=== PATIENT | female | born 1995 | race Caucasian/White ===

== ENCOUNTER 2018-04-17 18:45 | Outpatient (REF) | payer MEDICAID, SELFPAY | END 2018-04-17 19:05 | LOC: LBN 18:45 | PROVIDERS: PCP Pediatrics; Visit Provider Nurse Practitioner Family | DX: R30.0 Dysuria (principal) | CPT/HCPCS: 87086 ==

== ENCOUNTER 2018-07-14 12:46 | Outpatient (REF) | payer MEDICAID, SELFPAY ==
[2018-07-16 07:27] LABS: Chlamydia Result Negative; GC Result Negative; Specimen Description CERVIX
== END 2018-07-14 13:06 ==
LOC: LBN 12:46
PROVIDERS: PCP Pediatrics; Visit Provider Nurse Practitioner Family
DX: Z11.3 Encounter for screening for infections with a predominantly sexual mode of transmission (principal)
CPT/HCPCS: 87491; 87591

== ENCOUNTER 2020-03-06 17:56 | Outpatient (REF) | payer BC, MEDICAID, SELFPAY ==
[2020-03-09 00:41] LABS: Chlamydia amplified RNA Negative (Negative); N gonorrhoeae amplified RNA Negative (Negative); Source URINE
== END 2020-03-06 18:16 ==
LOC: LBN 17:56
PROVIDERS: PCP Pediatrics; Visit Provider Nurse Practitioner Women's Health
DX: Z11.3 Encounter for screening for infections with a predominantly sexual mode of transmission (principal)
CPT/HCPCS: 87491; 87591

== ENCOUNTER 2020-03-21 02:36 | Outpatient (CLI) | payer BC, MEDICAID, SELFPAY ==
[2020-03-23 19:43] LABS: Patient Race White; SARS-CoV-2 RNA Undetected (Undetected); SARS-CoV-2 Specimen Source Nasal
== END 2020-03-21 02:56 ==
PROVIDERS: Pediatrics; PCP Pediatrics; Visit Provider Pediatrics
DX: Z11.59 Encounter for screening for other viral diseases (principal)
CPT/HCPCS: U0003

== ENCOUNTER 2020-07-03 11:01 | Outpatient (CLI) | payer BC, MEDICAID, SELFPAY ==
[2020-07-04 12:26] LABS: COVID-19 RT-PCR UVMMC Result Negative (Negative)
== END 2020-07-03 11:02 | disposition home or self-care (01) ==
LOC: LBO 11:02
PROVIDERS: PCP Pediatrics; Visit Provider Pediatrics
DX: Z20.822 Contact with and (suspected) exposure to COVID-19 (principal)
CPT/HCPCS: U0003

== ENCOUNTER 2021-03-20 15:51 | Outpatient (REF) | payer BC, MEDICAID, SELFPAY ==
--- NOTE | 2021-03-20 14:45 | PAPFT_PTH ---
PATIENT: Chrissie Ji LOC: [facility] U#:[id number] AGE/SX: 25/F ROOM: RE03/20/[address]: CHEYENNE Marks : 1995 BED: DIS: 03/20/2021 SPEC #: [id number] RECD: 03/20/21 18:05 STATUS: SHILPA REQ #: [id number] JOLLY: 03/20/21 14:[address]: Mary Flores DEPT: [facility] Cytology RECD BY: Clementina Henson ENTERED: 03/20/21 18:05 SP TYPE: PAPFT OTHR DR: Yadira Jackson MD Tissues: 1 - CX/ENDOCX FOR PAP SMEARS Procedures: PAP THIN PREP/[facility] Screening Comments: [id number]
[2021-03-23 14:51] LABS: Chlamydia Result Negative (Negative); GC Result Negative (Negative)
== END 2021-03-20 15:52 | disposition home or self-care (01) ==
LOC: LBN 15:51
PROVIDERS: PCP Student in an Organized Health Care Education/Training Program; Visit Provider Nurse Practitioner Family
DX: Z12.4 Encounter for screening for malignant neoplasm of cervix (principal); Z11.3 Encounter for screening for infections with a predominantly sexual mode of transmission
CPT/HCPCS: 87491; 87591; 88142

== ENCOUNTER 2022-07-06 15:52 | Emergency (ER) | payer BC, MEDICAID, SELFPAY ==
[2022-07-06 15:54] VITALS: BP 141/90; PULSE 74; RESP 16; TEMP 36.9; O2SAT 100
--- NOTE | 2022-07-06 16:00 | DI.RAD_ITS ---
Exam(s) XR WRIST LT COMPLETE EXAM: XR WRIST LT COMPLETE CLINICAL HISTORY: Fall, R/O Fracture. TECHNIQUE: 2D digital imaging was performed. Three views. COMPARISON: No exams were available for comparison FINDINGS: BONES: Comminuted intra-articular fracture of the distal radius with mild separation and mild displac ement. Nondisplaced ulnar styloid fracture. Carpal bones unremarkable. No bony destructive lesion is seen. JOINTS: The carpal bones are normally aligned. SOFT TISSUE: Normal. IMPRESSION: Distal radial and ulnar styloid fractures. DATA REPOSITORY: RADIATION DOSE DELIVERED:
--- NOTE | 2022-07-06 16:08 | ED.GENADUL_ITS ---
Discharge Plan Disposition Patient Disposition: Home Discharge Details Clinical Impression: Closed fracture of left distal radius and ulna Primary Care Provider: None,None ED Provider: Linda Argueta Home Meds and New Rx's Prescriptions: Continued hydroxyzine HCl 25 mg tablet 25 mg PO Q6H PRN Qty: 30 3RF Rx Instructions: Take 1-2 tabs every 6 hours as needed for headaches. sumatriptan succinate [Imitrex] 100 mg tablet 100 mg PO PRN Qty: 10 3RF Rx Instructions: Take 1 tablet as needed for headache. May repeat after 2 hours. No more than 2 tablets in a 24 hour period. ibuprofen [Advil] 200 MG tablet 400 mg PO PRN Discharge Instructions Instructions: Wrist Fracture in Adults (ED) Additional Instructions: Keep the splint on except for bathing. Rest ice compression elevation while sitting or lying down. Please take Tylenol or Ibuprofen with food every 4-6 hours as needed for pain and swelling. Please follow-up with orthopedics within the next week. You are placed on a follow-up list they should call you for an appointment. Referrals: Fredi Roberts MD [ [facility] STAFF PHYSICIAN] - 1 week Medical Decision Making 27-year-old female presents to the ER with chief complaint of left wrist pain status post snowboarding accident which occurred prior to arrival. Patient reports that she fell on on it and it began to swell almost immediately. Distal CMS is intact. She is able to flex and extend her elbow without difficulty. Cap refill less than 2 seconds. X-ray ibuprofen urine ordered. X-ray shows a distal radius and ulnar fracture. Patient placed in a universal wrist splint and a sling. Instructed on home care and follow-up care. Patient was placed on care management list to follow-up with Ortho verbalized understa nding. This text was generated using [employer] system, please disregard any oddities of phrase or misspellings. HPI General Mode of arrival: ambulatory . Date/Time Provider Initiated Documentation: 07/06/22 16:04 . Limitations to Documentation: no limitations . Information obtained by: patient, RN notes reviewed and old records reviewed . HPI Narrative: 27-year-old female presents to the ER with chief complaint of left wrist pain status post snowboarding accident which occurred prior to arrival. Patient reports that she fell on on it and it began to swell almost immediately. Distal CMS is intact. She is able to flex and extend her elbow without difficulty. Cap refill less than 2 seconds. She has a past medical history of migraine headache. She did not take any medications prior to arrival. Denies head injury loss of consciousness or any other associated symptoms. Related Data Home Medications Medication Instructions Recorded Confirmed ibuprofen 200 mg tablet (Advil) 400 mg PO PRN 12/17/17 07/06/22 hydroxyzine HCl 25 mg tablet 25 mg PO Q6H PRN #30 tab-caps 03/11/22 07/06/22 sumatriptan succinate 100 mg 100 mg PO PRN #10 tab-caps 03/11/22 07/06/22 tablet (Imitrex) Previous Rx's Medication Instructions Recorded hydroxyzine HCl 25 mg tablet 25 mg PO Q6H PRN #30 tab-caps 03/11/22 sumatriptan succinate 100 mg 100 mg PO PRN #10 tab-caps 03/11/22 tablet (Imitrex) Allergies Allergy/AdvReac Type Severity Reaction Status Date / Time No Known Allergies Allergy Verified 07/06/22 15:57 General Stated Complaint: Orthopedic RAMBO: 4 Review of Systems All systems reviewed & are unremarkable except as noted in HPI and below Musculoskeletal Musculoskeletal: Reports as per HPI, Reports arthralgias and Reports joint swelling PFSH All Active Problems (Updated 07/06/22 @ 17:06 by Linda Argueta NP) Closed fracture of left distal radius and ulna (Acute) Migraine headache with aura (Acute) Migraine headache without aura (Acute) Nexplanon removal (Acute) Migraine without aura and with status migrainosus, not intractable (Acute 12/17/17) Contraception (Acute 06/02/15) Migraine (Acute 09/27/14) Medical History (Updated 07/06/22 @ 17:06 by Linda Argueta NP) Obesity Surgical History Tooth extraction Family History Sister Migraine Social History Smoking/Tobacco Use Status: Never Smoking risk assessment performed?: Yes Alcohol Intake: current Alcohol Intake frequency: a few times a month Alcohol type: beer, wine and hard liquor Drug use: Never Substance use type: does not use Do you feel safe at home: Yes Do you feel safe in your relationship?: Yes History History 0 Para Hx # Term Pregnancies Multiple births Hx # Pregnancies Ectopic pregnancies AB induced Hx Number of Living Children AB spontaneous Exam Narrative Exam Narrative: General: Well Developed, Awake and Alert, conversant. Skin: Warm and Dry HEENT: Head: No palpable deformities, Normocephalic Eyes: Pupils PERRLA, EOM's intact. No periorbital eccymosis or step off Ears: Canal patent. Tympanic membranes are clear . No pereira's sign, no hemptympanum. Nose/Face: Atraumatic. Facial bones nontender to palpation and stable with manipulation. Mouth/Throat: No intraoral trauma. Teeth and mandible are intact. Neck: No midline tenderness, no step off, no deformity to palpation of C-spine. Trachea midline. Chest: No surface trauma. Nontender without crepitus or deformity. Lungs clear to ausculatation bilaterally. Heart: RRR, no rubs, murmurs or gallop. Abdomen: No abrasions, ecchymosis, or surface trauma. Nondistended. Nontender to palpation no guarding, rebound, or rigidity. Pelvis: Nontender to palpation and stable to compression. Femoral pulses strong and equal Extremities: no surface trauma. Sensation intact. Peripheral pulses intact and equal. Left wrist pain. Neuro: ANO x4, GCS 15, cranial nerves II through XII intact. Motor and sensory exam nonfocal. Reflexes are symmetric. Course Vital Signs Vital signs: Vital Signs Temperature 36.9 C 07/06/22 15:54 Pulse 74 07/06/22 15:54 Respiratory Rate 16 07/06/22 15:54 Blood Pressure 141/90 H 07/06/22 15:54 Pulse Oximetry 100 07/06/22 15:54 Temperature 36.9 C 07/06/22 15:54 Temperature Source Temporal Artery Scan 07/06/22 15:54 Pulse 74 07/06/22 15:54 Respiratory Rate 16 07/06/22 15:54 Respiratory Effort Normal, Non-Labored 07/06/22 15:58 Blood Pressure 141/90 H 07/06/22 15:54 Blood Pressure Position Sitting 07/06/22 15:54 Pulse Oximetry 100 07/06/22 15:54 Oxygen Delivery Method Room Air 07/06/22 15:54 Oxygen Flow Rate 0 07/06/22 15:54 Pain Level 5 07/06/22 15:59 PAWSS Have you Been Recently Intoxicated or Drunk Within the Last 30 days?: Yes Have you Ever Experienced Previous Episodes of Alcohol Withdrawal?: No Have you ever Experienced Withdrawal Seizures?: No Have you ever Experienced Delirium Tremens(DT)s?: No Have you ever undergone Alcohol Rehabilitation Treatment (i.e, inpt ot outpatient treatment programs)?: No Have you ever Experienced Blackouts?: No Have you ever Combined Alcohol with other Downers within the last 90 days?: No Have you ever Combined Alcohol with any other Substance of Abuse during the last 90 days?: No Positive Blood Alcohol level on Presentation? [PCS.BAL]: No Evidence of Increased Autonomic Activity (i.e. HR>120, tremor, sweating, agitation, nausea)?: No Result: 1
[2022-07-06] MEDS: Acetaminophen 325 MG TAB 650 MG PO (16:42)
--- NOTE | 2022-07-06 16:45 | DI.VRAD_ITS ---
PROCEDURE INFORMATION: Exam: XR Left Wrist Exam date and time: 07/06/2022 4:24 PM Age: 27 years old Clinical indication: Other: Fall, R/O fracture TECHNIQUE: Imaging protocol: Radiologic exam of the left wrist. Views: 3 or more views. COMPARISON: No relevant prior studies available. FINDINGS: Bones/joints: A comminuted displaced fracture of the distal radius.. Nondisplaced fracture of the ulnar styloid. Soft tissues: Soft tissue swelling of the wrist IMPRESSION: 1. A comminuted displaced fracture of the distal radius.. 2. Nondisplaced fracture of the ulnar styloid. Dictated and Authenticated by: Tino Parsons MD. Ordering:JAIMIE Mckeon MD
== END 2022-07-06 17:19 | disposition home or self-care (01) ==
PROVIDERS: Emergency Provider Registered Nurse Emergency
DX: S52.502A Unspecified fracture of the lower end of left radius, initial encounter for closed fracture (principal); S52.602A Unspecified fracture of lower end of left ulna, initial encounter for closed fracture; V00.311A Fall from snowboard, initial encounter; Y93.23 Activity, snow (alpine) (downhill) skiing, snowboarding, sledding, tobogganing and snow tubing
CPT/HCPCS: 29125; 99283; 73110

== ENCOUNTER 2022-07-15 12:39 | Outpatient (CLI) | payer BC, MEDICAID, SELFPAY ==
--- NOTE | 2022-07-15 15:30 | DI.RAD_ITS ---
Exam(s) XR WRIST LT COMPLETE EXAM: XR WRIST LT COMPLETE CLINICAL HISTORY: L wrist fx. TECHNIQUE: 2D digital imaging was performed. COMPARISON: No exams were available for comparison FINDINGS: 3 views There are fractures distal radius and ulna. Distal radius fracture involves the radiocarpal joint bu t with minimal displacement and no dorsal angulation. There is fracture of the base of the ulnar sty loid without significant displacement. No carpal dislocation. Scaphoid and scapholunate distance ar e normal. Bone density normal. No osseous lesions. No radiopaque foreign body. IMPRESSION: Fractures of distal radius and ulnar styloid. No significant ulnar variance. DATA REPOSITORY: RADIATION DOSE DELIVERED:
== END 2022-07-15 12:40 | disposition home or self-care (01) ==
LOC: DIORS 12-24 12:39
PROVIDERS: Visit Provider Physician Assistant
DX: S52.611A Displaced fracture of right ulna styloid process, initial encounter for closed fracture (principal); S52.511A Displaced fracture of right radial styloid process, initial encounter for closed fracture; X58.XXXA Exposure to other specified factors, initial encounter
CPT/HCPCS: 73110

== ENCOUNTER 2022-07-22 13:41 | Outpatient (CLI) | payer BC, MEDICAID, SELFPAY ==
--- NOTE | 2022-07-22 13:00 | DI.RAD_ITS ---
Exam(s) XR WRIST LT COMPLETE EXAM: XR WRIST LT COMPLETE INDICATION: f/u L WRIST FRACTURE. COMPARISON: No exams were available for comparison TECHNIQUE: 2D digital imaging was performed. Two views. FINDINGS: There has been no change in the alignment of the distal radial and ulnar styloid fractures. No new a bnormalities are seen. DATA REPOSITORY: RADIATION DOSE DELIVERED:
== END 2022-07-22 13:42 | disposition home or self-care (01) ==
LOC: DIORS 13:41
PROVIDERS: Visit Provider Student in an Organized Health Care Education/Training Program
DX: S52.592D Other fractures of lower end of left radius, subsequent encounter for closed fracture with routine healing; S52.615D Nondisplaced fracture of left ulna styloid process, subsequent encounter for closed fracture with routine healing; X58.XXXD Exposure to other specified factors, subsequent encounter
CPT/HCPCS: 73110

== ENCOUNTER 2022-08-08 13:57 | Outpatient (CLI) | payer BC, MEDICAID, SELFPAY ==
--- NOTE | 2022-08-08 13:45 | DI.RAD_ITS ---
Exam(s) XR WRIST LT COMPLETE EXAM: XR WRIST LT COMPLETE INDICATION: f/u fx. COMPARISON: CR XR WRIST LT COMPLETE from 07/22/2022 TECHNIQUE: 2D digital imaging was performed. Two views. FINDINGS: There has been no change in the alignment of the distal radial or ulnar styloid fractures. No new fi ndings. DATA REPOSITORY: RADIATION DOSE DELIVERED:
== END 2022-08-08 13:58 | disposition home or self-care (01) ==
LOC: DIORS 13:58
PROVIDERS: Visit Provider Physician Assistant
DX: S52.592D Other fractures of lower end of left radius, subsequent encounter for closed fracture with routine healing (principal); S52.615D Nondisplaced fracture of left ulna styloid process, subsequent encounter for closed fracture with routine healing; X58.XXXD Exposure to other specified factors, subsequent encounter
CPT/HCPCS: 73110

== ENCOUNTER 2022-09-05 14:44 | Outpatient (CLI) | payer BC, MEDICAID, SELFPAY ==
--- NOTE | 2022-09-05 14:15 | DI.RAD_ITS ---
Exam(s) XR WRIST LT COMPLETE EXAM: XR WRIST LT COMPLETE CLINICAL HISTORY: fracture follow up. TECHNIQUE: 2D digital imaging was performed. Three views. COMPARISON: CR XR WRIST LT COMPLETE from 08/08/2022 FINDINGS: BONES: There is increased callus formation noted around the distal radial fracture site consistent wi th some increased healing. The ulnar styloid fractures unchanged in alignment. No new abnormalities are seen. No bony destructive lesion is seen. JOINTS: The carpal bones are normally aligned. SOFT TISSUE: Normal. IMPRESSION: Healing distal radial fracture. DATA REPOSITORY: RADIATION DOSE DELIVERED:
== END 2022-09-05 14:45 | disposition home or self-care (01) ==
LOC: DIORS 14:45
PROVIDERS: Visit Provider Physician Assistant
DX: S52.502D Unspecified fracture of the lower end of left radius, subsequent encounter for closed fracture with routine healing (principal); S52.602D Unspecified fracture of lower end of left ulna, subsequent encounter for closed fracture with routine healing
CPT/HCPCS: 73110

== ENCOUNTER 2022-11-09 23:16 | Emergency (ER) | payer BC, MEDICAID, SELFPAY ==
[2022-11-09 23:24] VITALS: BP 129/70; PULSE 62; RESP 18; TEMP 36.3; O2SAT 97
--- NOTE | 2022-11-10 00:20 | ED.GENADUL_ITS ---
Discharge Plan Disposition Patient Disposition: Home Condition: Good Discharge Details Clinical Impression: CHI (closed head injury), Abrasions of multiple sites Primary Care Provider: Mary,Local ED Provider: Lita Medellin Home Meds and New Rx's Prescriptions: Continued hydroxyzine HCl 25 mg tablet 25 mg PO Q6H PRN Qty: 30 3RF Rx Instructions: Take 1-2 tabs every 6 hours as needed for headaches. sumatriptan succinate [Imitrex] 100 mg tablet 100 mg PO PRN Qty: 10 3RF Rx Instructions: Take 1 tablet as needed for headache. May repeat after 2 hours. No more than 2 tablets in a 24 hour period. ibuprofen [Advil] 200 MG tablet 400 mg PO PRN Discharge Instructions Instructions: Head Injury (ED), Abrasion (ED) Additional Instructions: Keep your abrasions clean dry and intact. Triple antibiotic or Neosporin until they are healed. Return for symptoms on head injury sheet i.e. protracted vomiting, headache not controlled with Tylenol, any other concerns. Stand Alone Forms: Work Release Medical Decision Making [place] head injury rules states that the patient does not need a head CT. This was discussed with her extensively. She did take some Zofran and Tylenol as well as a tetanus shot. She was stable on discharge. I did ask her to take tomorrow and perhaps a day after off from work. She will return for counts vomiting, headache uncontrolled with analgesia, confusion, any other concerns. Medical Records Medical records reviewed: Yes I reviewed the patient's medical records. HPI General Date/Time Provider Initiated Documentation: 11/10/22 00:00 . HPI Narrative: This 27-year-old female patient presents with a chief complaint of fall skateboarding. Patient was skateboarding without a helmet or other protection earlier this evening in the dark. She lost her balance and fell. She was not traveling at a high rate of speed. She did hit her head but denies LOC. There is no neck pain. She has mild nausea, mild headache. She has had no dizziness, vomiting, or altered mental status. Her last tetanus shot was at least 9 years ago. 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 She has a lot of road rash which has been cleansed in the ED. The injuries are mild to moderate the pain in her head is mild aching. Does not radiate. She has not tried any analgesics or ice. Related Data Home Medications Medication Instructions Recorded Confirmed ibuprofen 200 mg tablet (Advil) 400 mg PO PRN 12/17/17 11/10/22 hydroxyzine HCl 25 mg tablet 25 mg PO Q6H PRN #30 tab-caps 03/11/22 11/10/22 sumatriptan succinate 100 mg 100 mg PO PRN #10 tab-caps 03/11/22 11/10/22 tablet (Imitrex) Previous Rx's Medication Instructions Recorded hydroxyzine HCl 25 mg tablet 25 mg PO Q6H PRN #30 tab-caps 03/11/22 sumatriptan succinate 100 mg 100 mg PO PRN #10 tab-caps 03/11/22 tablet (Imitrex) Allergies Allergy/AdvReac Type Severity Reaction Status Date / Time No Known Allergies Allergy Verified 11/10/22 00:14 General Stated Complaint: Fall/Non TraumaCriteria RAMBO: 3 Review of Systems Constitutional Constitutional: Denies chills, Denies fever(s), Reports headache(s) and Denies weakness Eyes Eyes: Denies diplopia and Reports other (no redness) ENT Ears, Nose, Mouth, and Throat: Denies otalgia, Reports headache(s), Denies nasal congestion, Denies nasal discharge, Denies neck pain and Denies sore throat Cardiovascular Cardiovascular: Denies chest pain, Denies palpitations and Denies dyspnea Respiratory Respiratory: Denies cough and Denies dyspnea Gastrointestinal Gastrointestinal: Denies abdominal pain, Denies diarrhea, Denies nausea and Denies vomiting Genitourinary Genitourinary: Denies dysuria Musculoskeletal Musculoskeletal: Denies myalgias, Denies muscle weakness, Denies neck pain, Denies numbness and Reports other (edema) Integumentary/Breasts Skin/Breast: Denies change in pigmentation, Denies rash and Reports other (Has abrasions) Neurologic Neurologic: Reports headache(s), Denies numbness, Denies weakness and Reports other (no LOC) Endocrine Endocrine: Denies palpitations PFSH All Active Problems CHI (closed head injury) (Acute) Abrasions of multiple sites (Acute) Closed fracture of left distal radius and ulna (Acute 07/06/22) Migraine headache with aura (Acute) Migraine headache without aura (Acute) Nexplanon removal (Acute) Migraine without aura and with status migrainosus, not intractable (Acute 12/17/17) Contraception (Acute 06/02/15) Migraine (Acute 09/27/14) Medical History Obesity Surgical History Tooth extraction Family History Sister Migraine Social History Smoking/Tobacco Use Status: Never Smoking risk assessment performed?: Yes Alcohol Intake: current Alcohol Intake frequency: a few times a month Alcohol type: beer, wine and hard liquor Drug use: Occasionally Substance use type: marijuana Do you feel safe at home: Yes Do you feel safe in your relationship?: Yes History History 0 Para Hx # Term Pregnancies Multiple births Hx # Pregnancies Ectopic pregnancies AB induced Hx Number of Living Children AB spontaneous Exam Const General: no acute distress, well developed, well groomed and not in acute distress Nutritional Appearance: well nourished Orientation: alert and oriented x3 HENMT Head: normocephalic Ears: external ears normal and TM's normal bilaterally General nose exam: other (Minor abrasion, no septal hematoma) Face and sinus: other (Right-sided forehead and cheek abrasions, no bony tenderness to palpation) Mouth: oropharynx normal and moist mucous membranes Throat: posterior oropharynx normal Eyes Conjunctivae: conjunctivae normal Pupils: PERRL EOM: EOM intact bilaterally Neck Neck: full ROM, supple and other (spine NTP) Chest Chest: normal inspection of the chest and normal palpation of entire chest wall Resp Effort & Inspection: normal respiratory effort Auscultation: clear to auscultation bilaterally Cardio Rate: regular rate Rhythm: regular rhythm Heart Sounds: no murmurs and no rubs GI Inspection: normal to inspection Palpation: soft, nontender and other (non distended) Auscultation: normal bowel sounds Back/Spine/Pelvis Back: no CVA tenderness Cervical Spine: cervical ROM normal and No cervical spinal tenderness Thoracic/Lumbar Spine: thoracic and lumbar spine normal to inspection, No thoracic spinal tenderness and No lumbar spinal tenderness Pelvis: no pain with anterior-posterior compression and no pain with lateral compression Skin General skin exam: no rashes or lesions noted and other (PWD< abras's ANAT, right elbow/forearm/hand, left knee/palm, all NTP, FROM) Neuro General: patient alert, patient awake and patient oriented x3 Speech: speech normal Gait: normal gait Motor: muscle tone normal throughout, strength 5/5 throughout and other ([place]) Sensory Exam: no sensory deficits noted Extrem General: full ROM, pedal edema present and other (As noted previously) Psych Mental Status: mental status grossly normal Speech and Movement: speech and movement normal Affect: normal affect Course Vital Signs Vital signs: Vital Signs Temperature 36.3 C L 11/09/22 23:24 Pulse 62 11/09/22 23:24 Respiratory Rate 18 11/09/22 23:24 Blood Pressure 129/70 11/09/22 23:24 Pulse Oximetry 97 11/09/22 23:24 Temperature 36.3 C L 11/09/22 23:24 Temperature Source Tympanic 11/09/22 23:24 Pulse 62 11/09/22 23:24 Respiratory Rate 18 11/09/22 23:24 Respiratory Effort Normal 11/09/22 23:32 Blood Pressure 129/70 11/09/22 23:24 Blood Pressure Position Sitting 11/09/22 23:24 Pulse Oximetry 97 11/09/22 23:24 Pain Level 2 11/09/22 23:32 PAWSS Have you Been Recently Intoxicated or Drunk Within the Last 30 days?: No Have you Ever Experienced Previous Episodes of Alcohol Withdrawal?: No Have you ever Experienced Withdrawal Seizures?: No Have you ever Experienced Delirium Tremens(DT)s?: No Have you ever undergone Alcohol Rehabilitation Treatment (i.e, inpt ot outpatient treatment programs)?: No Have you ever Experienced Blackouts?: No Have you ever Combined Alcohol with other Downers within the last 90 days?: No Have you ever Combined Alcohol with any other Substance of Abuse during the last 90 days?: No Positive Blood Alcohol level on Presentation? [PCS.BAL]: No Evidence of Increased Autonomic Activity (i.e. HR>120, tremor, sweating, agitation, nausea)?: No Result: 0
[2022-11-10] MEDS: Acetaminophen 325 MG TAB 650 MG PO (00:34)
[2022-11-10] MEDS: Ondansetron O.D.T. 4 MG TABEF 8 MG PO (00:35)
[2022-11-10 00:57] VITALS: BP 112/59; PULSE 59; RESP 20; O2SAT 100
== END 2022-11-10 00:57 | disposition home or self-care (01) ==
PROVIDERS: Emergency Provider Emergency Medicine
DX: S00.81XA Abrasion of other part of head, initial encounter (principal); S50.311A Abrasion of right elbow, initial encounter; S60.811A Abrasion of right wrist, initial encounter; S60.812A Abrasion of left wrist, initial encounter; V00.131A Fall from skateboard, initial encounter
CPT/HCPCS: 96372; 99284

== ENCOUNTER 2022-11-14 11:44 | Outpatient (CLI) | payer BC, MEDICAID, SELFPAY ==
--- NOTE | 2022-11-14 11:30 | DI.RAD_ITS ---
Exam(s) XR ABDOMEN FLAT UPRIGHT EXAM: 2D digital imaging was performed. CLINICAL HISTORY: constipation, K59.00. COMPARISON: CR ABDOMEN FLAT PLATE from 06/14/2008 TECHNIQUE: Supine and upright views of the abdomen was performed. Two images were obtained. FINDINGS: LUNG BASES: Clear. BOWEL GAS PATTERN: Nondistended. There is a moderate amount of stool in the colon. It predominantly lies in the right colon. FREE AIR: None. CALCIFICATIONS: No radiopaque calcifications. OSSEOUS STRUCTURES: Normal for age. OTHER FINDINGS: None. IMPRESSION: Moderate amount of retained stool suggesting constipation. DATA REPOSITORY: RADIATION DOSE DELIVERED:
== END 2022-11-14 12:04 ==
LOC: DI 11:48
PROVIDERS: Visit Provider Physician Assistant
DX: K59.00 Constipation, unspecified (principal)
CPT/HCPCS: 74019

== ENCOUNTER 2023-02-05 10:10 | Outpatient (REF) | payer BC, MEDICAID, SELFPAY ==
[2023-02-06 15:02] LABS: Chlamydia Result Negative (Negative); GC Result Negative (Negative)
== END 2023-02-05 10:11 | disposition home or self-care (01) ==
LOC: LBN 10:10
PROVIDERS: Visit Provider Nurse Practitioner Women's Health
DX: R30.0 Dysuria (principal); N76.0 Acute vaginitis; Z11.3 Encounter for screening for infections with a predominantly sexual mode of transmission
CPT/HCPCS: 87077; 87491; 87591; 87086; 87186; 87480; 87510; 87660

== ENCOUNTER 2023-06-17 16:30 | Outpatient (REF) | payer BC, MEDICAID, SELFPAY ==
[2023-06-19 12:14] LABS: Chlamydia Result Negative (Negative); GC Result Negative (Negative)
== END 2023-06-17 16:31 | disposition home or self-care (01) ==
LOC: LBN 16:30
PROVIDERS: Visit Provider Advanced Practice Midwife
DX: N89.8 Other specified noninflammatory disorders of vagina (principal); R30.0 Dysuria; Z11.3 Encounter for screening for infections with a predominantly sexual mode of transmission
CPT/HCPCS: 87491; 87591; 87086; 87480; 87510; 87660

== ENCOUNTER 2023-08-27 09:21 | Outpatient (REF) | payer BC, SELFPAY ==
[2023-08-28 14:15] LABS: Chlamydia Result Negative (Negative); GC Result Negative (Negative)
== END 2023-08-27 09:22 | disposition home or self-care (01) ==
LOC: LBN 09:21
PROVIDERS: PCP Nurse Practitioner Women's Health; Visit Provider Nurse Practitioner Women's Health
DX: Z11.3 Encounter for screening for infections with a predominantly sexual mode of transmission (principal)
CPT/HCPCS: 87491; 87591

== ENCOUNTER 2023-08-27 09:30 | Outpatient (CLI) | payer BC, SELFPAY ==
[2023-08-27 19:06] LABS: HIV-1/2 Ag & Ab Screen Negative (Negative)
[2023-08-27 19:09] LABS: Hepatitis C Ab w Rflx HCV PCR Negative (Negative)
[2023-08-28 23:26] LABS: Syphilis IgG w/Reflex Nonreactive (Nonreactive)
== END 2023-08-27 09:31 | disposition home or self-care (01) ==
LOC: LBO 09:31
PROVIDERS: PCP Nurse Practitioner Women's Health; Visit Provider Nurse Practitioner Women's Health
DX: Z11.3 Encounter for screening for infections with a predominantly sexual mode of transmission (principal)
CPT/HCPCS: 36415; 86803; 87389; 86780

== ENCOUNTER 2023-11-10 15:02 | Outpatient (REF) | payer BC, SELFPAY | END 2023-11-10 15:03 | disposition home or self-care (01) | LOC: LBN 15:02 | PROVIDERS: Visit Provider Obstetrics & Gynecology Gynecology | DX: N89.8 Other specified noninflammatory disorders of vagina (principal) | CPT/HCPCS: 87480; 87510; 87660 ==

== ENCOUNTER 2024-07-01 09:42 | Emergency (ER) | payer BC, SELFPAY ==
[2024-07-01 10:13] VITALS: BP 176/108; PULSE 68; RESP 18; TEMP 36.4; O2SAT 98
[2024-07-01 10:29] VITALS: BP 176/108; PULSE 68; RESP 18; TEMP 36.4; O2SAT 98
[2024-07-01] MEDS: Ketorolac 15 MG/ML VIAL 7.5 MG IM (11:05)
[2024-07-01] MEDS: Prochlorperazine 10 MG/2 ML VIAL IM (11:05)
[2024-07-01] MEDS: Acetaminophen 500 MG TAB 1000 MG PO (11:06)
[2024-07-01 12:01] VITALS: BP 124/78; PULSE 54; RESP 16; O2SAT 100
--- NOTE | 2024-07-01 15:59 | NUR.NOTE ---
Patient called stating that she could not find her wallet. She was in Rm 10 and the waiting room. [employer] checked waiting room; no wallet. ED checked room 10 no wallet. Patient notified. Nursing Note:
--- NOTE | 2024-07-03 08:21 | ED.GENADUL_ITS ---
Discharge Plan Disposition Patient Disposition: Home Condition: Stable Discharge Details Clinical Impression: Migraine headache without aura Primary Care Provider: AMOS RICARDO ED Provider: Clementina Arreguin Home Meds and New Rx's Prescriptions: New prochlorperazine maleate [Compazine] 10 mg tablet 10 mg PO Q6H PRNQty: 10 0RF Continued rizatriptan 10 mg tablet See Rx Instructions PO .COMPLEX Qty: 10 3RF Rx Instructions: take 1 tab at onset of headache; if no relief may repeat 1 tab after at least 2 hrs; max = 2 tabs/24 hr PO ibuprofen [Advil] 200 MG tablet 400 mg PO PRN hydroxyzine HCl 25 mg tablet See Rx Instructions .ROUTE .COMPLEX Qty: 30 3RF Dose Instruction: TAKE 1-2 TABLETS BY MOUTH EVERY 6 HOURS NEEDED FOR HEADACHES Rx Instructions: TAKE 1-2 TABLETS BY MOUTH EVERY 6 HOURS NEEDED FOR HEADACHES Discharge Instructions Instructions: Headache, Adult ED Additional Instructions: Take Motrin 400 to 600 mg Tylenol 650 g every 6 hours for headache control You may take the Compazine as prescribed as needed for headache Follow the instructions for your rizatriptan You may talk to your doctor about a prophylactic medication if your headaches continue to worsen Should you have return of headache or with any new or worsening complaints, please be reassessed in the emergency department Stand Alone Forms: Work Release Referrals: AMOS RICARDO, [facility]IST [Primary Care Provider] - 2 days Discharge Data Discharge Date/Time-TO BE ENTERED AT DEPARTURE: 07/01/24 12:02 HPI General Date/Time Provider Initiated Documentation: 07/01/24 10:41 . HPI Narrative: The patient is a 29-year-old female who presents with a headache that remains uncontrolled despite appropriate medical management at home. She describes the headache as slightly worse than her typical headache. She has experienced some nausea and vomiting. She has not been able to take Motrin or Tylenol at home. She reports no recent illnesses or injuries and does not believe she has been exposed to carbon monoxide. She also reports no changes in vision, strength, sensation, or speech. Additionally, she has not noticed any rashes or lesions. Declines chance of Related Data Home Medications ?Medication ?Instructions ?Recorded ?Confirmed ibuprofen 200 mg tablet (Advil) 400 mg PO PRN 12/17/17 07/01/24 rizatriptan 10 mg tablet See Rx Instructions PO .COMPLEX 03/18/24 07/01/24 #10 tabs hydroxyzine HCl 25 mg tablet See Rx Instructions .Route 07/01/24 07/01/24 .COMPLEX #30 tabs prochlorperazine maleate 10 mg 10 mg PO Q6H PRN #10 tabs 07/01/24 tablet (Compazine) Previous Rx's ?Medication ?Instructions ?Recorded rizatriptan 10 mg tablet See Rx Instructions PO .COMPLEX 03/18/24 #10 tabs hydroxyzine HCl 25 mg tablet See Rx Instructions .Route 07/01/24 .COMPLEX #30 tabs prochlorperazine maleate 10 mg 10 mg PO Q6H PRN #10 tabs 07/01/24 tablet (Compazine) Allergies Allergy/AdvReac Type Severity Reaction Status Date / Time No Known Allergies Allergy Verified 07/01/24 10:14 General Stated Complaint: Headache RAMBO: 3 Exam Narrative Exam Narrative: General Appearance: The patient is alert and oriented, but appears uncomfortable and is tearful in the room. Vital signs: Within normal limits. HEENT: Within normal limits. Respiratory: Within normal limits. Skin: Warm and dry, no rash. Neurological: The patient has a nonfocal neurological exam. Course Vital Signs Vital signs: Vital Signs Temperature 36.4 C 07/01/24 10:13 Pulse 68 07/01/24 10:13 Respiratory Rate 18 07/01/24 10:13 Blood Pressure 176/108 H 07/01/24 10:13 Pulse Oximetry 98 07/01/24 10:13 Temperature 36.4 C 07/01/24 10:29 Temperature Source Oral 07/01/24 10:29 Pulse 54 L 07/01/24 12:01 Respiratory Rate 16 07/01/24 12:01 Blood Pressure 124/78 07/01/24 12:01 Blood Pressure Position Sitting 07/01/24 10:29 Pulse Oximetry 100 07/01/24 12:01 Oxygen Delivery Method Room Air 07/01/24 10:29 Oxygen Flow Rate 0 07/01/24 10:29 Pain Level 8 07/01/24 10:29 Medical Decision Making Initial Assessment: 29-year-old female presents with headache slightly worse than her typical headache, accompanied by nausea and vomiting. Denies recent illnesses, injuries, risk of carbon monoxide exposure, vision change, strength, sensation, or speech change, and . Neurological exam stable, no meningismus. ED Course: - Administered intramuscular Compazine and Toradol, marked improvement in symptoms. - Patient tearful and uncomfortable in the room. - Encouraged to follow up with primary care physician. - Prescription for Compazine for home use as needed. - Advised to take Motrin and Tylenol as needed for pain. - Given a low threshold to return due to any complaints. -As patient had appropriate relief with typical migraine medications imaging deferred at this time Final Assessment: Patient presented with a headache and associated nausea and vomiting. After administration of Compazine and Toradol, symptoms markedly improved. Neurological exam remained stable. Discharge with follow-up instructions and prescription for Compazine. Clinical Impression: - Cephalgia - Nausea and vomiting Disposition: - Discharge - Follow-Up: Follow up with primary care physician. MDM Components Evaluation: - Number of Differential Diagnoses or Management Options: Cephalgia, Nausea and vomiting - Amount and Complexity of Data Reviewed: MRI in the outpatient setting - Risk of Complication and Morbidity or Mortality: Low threshold to return due to any complaints. Quality:SDOH Health Related Social Needs: No Data to Display PFSH All Active Problems (Updated 07/01/24 @ 11:35 by FRANCIA Acuna) Vaginal pruritus (Acute) Encounter for screening examination for sexually transmitted disease (Acute) Vaginal discharge (Acute) Dysuria (Acute) Abnormal uterine bleeding (AUB) (Acute) Closed fracture of left distal radius and ulna (Acute 07/06/22) Migraine headache with aura (Acute) Migraine headache without aura (Acute) Migraine without aura and with status migrainosus, not intractable (Acute 12/17/17) Contraception (Acute 06/02/15) Migraine (Acute 09/27/14) Medical History (Updated 07/01/24 @ 11:35 by FRANCIA Acuna) Obesity Surgical History Tooth extraction Family History Sister Migraine Social History Smoking/Tobacco Use Status: Never Smoking risk assessment performed?: Yes Alcohol Intake: former Drug use: Current Sobriety Do you feel safe at home: Yes Do you feel safe in your relationship?: Yes Female Reproductive History Menstrual control method: condoms History History 0 Para Hx # Term Pregnancies Multiple births Hx # Pregnancies Ectopic pregnancies AB induced Hx Number of Living Children AB spontaneous
== END 2024-07-01 12:02 | disposition home or self-care (01) ==
PROVIDERS: Emergency Provider Physician Assistant; PCP Nurse Practitioner Family
DX: G43.109 Migraine with aura, not intractable, without status migrainosus (principal)
CPT/HCPCS: 96372; 96374; 99284; 99283; J0780; J1885

== ENCOUNTER 2024-08-25 14:39 | Outpatient (REF) | payer BC, SELFPAY ==
--- NOTE | 2024-08-25 14:30 | PAPFT_PTH ---
PATIENT: Chrissie Ji LOC: [facility] U#:[id number] AGE/SX: 29/F ROOM: RE08/25/[address]: Sumaya Drummond MD : 1995 BED: DIS: 08/25/2024 SPEC #: [id number] RECD: 08/25/24 17:34 STATUS: SHILPA REQ #: [id number] JOLLY: 08/25/24 14:[address]: Sumaya Drummond DEPT: [facility] Cytology RECD BY: Clementina Henson ENTERED: 08/25/24 17:34 SP TYPE: PAPFT OTHR DR: AMOS RICARDO NP Tissues: 1 - CX/ENDOCX FOR PAP SMEARS Procedures: PAP THIN PREP/[facility] Screening Comments: [id number]
== END 2024-08-25 14:40 | disposition home or self-care (01) ==
LOC: LBN 14:39
PROVIDERS: PCP Nurse Practitioner Family; Visit Provider Obstetrics & Gynecology
DX: Z12.4 Encounter for screening for malignant neoplasm of cervix (principal)
CPT/HCPCS: 88142

== ENCOUNTER 2024-11-15 17:30 | Outpatient (CLI) | payer BC, SELFPAY ==
--- NOTE | 2024-11-15 17:50 | DI.RAD_ITS ---
Exam(s) XR CHEST 2V PA LATERAL EXAM: XR CHEST 2V PA LATERAL CLINICAL HISTORY: Subacute cough, R05.2 TECHNIQUE: 2D digital imaging was performed of the chest. Two images were obtained. PA and lateral views were obtained. COMPARISON: No exams were available for comparison FINDINGS: MEDIASTINUM: Normal. HEART: Normal. PULMONARY VASCULATURE: Normal. LUNGS: Clear. PLEURAL SPACE: No pleural effusion or pneumothorax. BONE:Within normal limits for the patient's age. OTHER FINDINGS:Normal. IMPRESSION: No acute pulmonary findings. DATA REPOSITORY: RADIATION DOSE DELIVERED:
--- NOTE | 2024-11-15 18:32 | DI.VRAD_ITS ---
PROCEDURE INFORMATION: Exam: XR Chest Exam date and time: 11/15/2024 5:49 PM Age: 29 years old Clinical indication: Cough and other: Subacute cough TECHNIQUE: Imaging protocol: Radiologic exam of the chest. Views: 2 views. COMPARISON: CR XR ABDOMEN FLAT UPRIGHT 11/14/2022 11:44 AM FINDINGS: Lungs: Unremarkable. No consolidation. Pleural spaces: Unremarkable. No pleural effusion. No pneumothorax. Heart/Mediastinum: Unremarkable. No cardiomegaly. Bones/joints: Unremarkable. IMPRESSION: No acute findings. Dictated and Authenticated by: Hawk Johnson MD. Orderin CINDY AGUILAR MD
== END 2024-11-15 17:50 ==
LOC: DI 17:34
PROVIDERS: PCP Nurse Practitioner Family; Visit Provider Nurse Practitioner Family
DX: R05.2 Subacute cough (principal)
CPT/HCPCS: 71046

== ENCOUNTER 2025-03-16 16:26 | Outpatient (REF) | payer BC, SELFPAY ==
[2025-03-18 11:09] LABS: Chlamydia Result Negative (Negative); GC Result Negative (Negative)
== END 2025-03-16 16:27 | disposition home or self-care (01) ==
LOC: LBN 16:26
PROVIDERS: PCP Nurse Practitioner Family; Visit Provider Advanced Practice Midwife
DX: Z34.91 Encounter for supervision of normal pregnancy, unspecified, first trimester (principal); N89.8 Other specified noninflammatory disorders of vagina
CPT/HCPCS: 87491; 87591

== ENCOUNTER 2025-03-18 15:54 | Outpatient (CLI) | payer BC, SELFPAY ==
[2025-03-18 16:27] LABS: HCG Quant, Pregnancy 525 mIU/mL (1.5-4.2)
== END 2025-03-18 15:55 | disposition home or self-care (01) ==
LOC: LBO 15:54
PROVIDERS: PCP Nurse Practitioner Family; Visit Provider Advanced Practice Midwife
DX: O20.9 Hemorrhage in early pregnancy, unspecified (principal)
CPT/HCPCS: 36415; 84702

== ENCOUNTER 2025-03-21 09:57 | Outpatient (CLI) | payer BC, SELFPAY ==
[2025-03-21 11:12] LABS: HCG Quant, Pregnancy 130 mIU/mL (1.5-4.2)
== END 2025-03-21 09:58 | disposition home or self-care (01) ==
PROVIDERS: PCP Nurse Practitioner Family; Visit Provider Advanced Practice Midwife
DX: O20.9 Hemorrhage in early pregnancy, unspecified (principal)
CPT/HCPCS: 36415; 84702